=== PATIENT | female | born 1985 | race Caucasian/White ===

== ENCOUNTER 2025-07-05 21:04 | Emergency (ER) | payer OTHER ==
[~2025-07-05] VITALS: Ht 157.5 cm; Wt 54.9 kg
[2025-07-05 22:55] LABS: APPEARANCE,URINE CLEAR (CLEAR); BLOOD, URINE NEGATIVE Ery/uL (NEGATIVE); LEUKOCYTE ESTERASE ,URINE NEGATIVE (NEGATIVE); NITRITE, URINE NEGATIVE (NEGATIVE); UGLUCOSE NEGATIVE (NEGATIVE)
[2025-07-05 22:57] LABS: PREGNANCY TEST URINE QUAL NEGATIVE (NEGATIVE)
[2025-07-06 00:09] LABS: PLATELET COUNT (AUTO) 184 K/uL (150-450); RED BLOOD CELL COUNT(AUTO) 4.14 MIL/uL (4.0-5.2); RED CELL DISTRIBUTION WIDTH 14.0 % (11.5-15.0); WHITE BLOOD COUNT (AUTO) 10.3 K/uL (4.3-11.0)
[2025-07-06] MEDS ORDERED: AZITHROMYCIN 500 MG VIAL ONE (00:10)
[2025-07-06] MEDS: ALBUTEROL FS 2.5 MG/3 ML VIAL.NEB NEB ONE (00:13)
[2025-07-06] MEDS ORDERED: ALBUTEROL FS 2.5 MG/3 ML VIAL.NEB ONE (00:16)
[2025-07-06 00:20] VITALS: O2SAT 98
[2025-07-06 00:24] LABS: ASPARTATE AMINOTRANSFERASE 26.0 U/L (15-37); CALCIUM, SERUM 8.4 mg/dL (8.5-10.1); CREATININE 0.6 mg/dL (0.6-1.3); SODIUM SERUM 141.0 mmol/L (136-145); TOTAL PROTEIN, SERUM 6.8 g/dL (6.4-8.2); UREA NITROGEN, BLOOD 9.0 mg/dL (7-18)
[2025-07-06] MEDS: AZITHROMYCIN 500 MG in IV D5W 250 ML IV ONE (00:24)
[2025-07-06] MEDS: IV NS 0.9% 1,000 ML IV ONE (00:24)
[2025-07-06 00:30] VITALS: O2SAT 100
[2025-07-06] MEDS ORDERED: BENZ-13 PO (01:44)
[2025-07-06] MEDS ORDERED: AZIT250T PO (01:44)
[2025-07-06] MEDS ORDERED: ALBU8.5H8 INH (01:44)
[2025-07-06 02:50] VITALS: BP 112/73; TEMP 98.4; O2SAT 98
== END 2025-07-06 02:50 | disposition home or self-care (01) ==
LOC: ER 21:10
DX: J18.9 Pneumonia, unspecified organism (principal); Z60.2 Problems related to living alone; Z79.899 Other long term (current) drug therapy; Z20.822 Contact with and (suspected) exposure to COVID-19
CPT/HCPCS: 99285; 71045; 87426; 87804 ×2; 84703; 81003; 36415; 96365; 85025; 87040; 80053; 94640; J0456; J7030; J7060